=== PATIENT | female | born 1990 | race Two or more races ===

== ENCOUNTER 2025-02-05 22:40 | Emergency (ER) | payer OTHER ==
[~2025-02-05] VITALS: Ht 165.1 cm; Wt 70.3 kg
[2025-02-05 23:34] VITALS: BP 121/83; PULSE 78; RESP 18; TEMP 98.1; O2SAT 96
[2025-02-05] MEDS: LIDOCAINE VISCOUS 2% 15ML UD PO ONE (23:45)
[2025-02-05] MEDS: ONDANSETRON ODT 4 MG TAB PO ONE (23:45)
[2025-02-05] MEDS: MAALOX PLUS or MAALOX 30 ML PO ONE (23:45)
[2025-02-05] MEDS: KETOROLAC TROMETH 30 MG/ML 1ML VIAL IM ONE (23:45)
[2025-02-06 00:01] LABS: Basophils # (auto) 0 10 ^3/uL (0-0.2); Basophils % (auto) 0.3 % (0.0-2.0); Eosinophils # (auto) 0 10 ^3/uL (0-0.8); Eosinophils % (auto) 0.2 % (0.0-7.0); Hematocrit 39.4 % (36.0-46.0); Hemoglobin 13.6 g/dL (12.2-16.2); Lymphocytes # (auto) 0.9 10 ^3/uL (0.4-5.4); Lymphocytes % (auto) 7.4 % (10.0-50.0); Mean Corpuscular Hgb Conc. 34.4 g/dL (32.0-36.0); Mean Corpuscular Volume 90.1 fL (80.0-100.0); Monocytes # (auto) 0.5 10 ^3/uL (0-1.3); Monocytes % (auto) 3.9 % (0.0-12.0); Neutrophils # (auto) 10.4 10 ^3/uL (1.6-8.6); Neutrophils % (auto) 88.2 % (37.0-80.0); Platelet Count (auto) 248 10^3/uL (140-450); Red Blood Cells 4.37 10^6/uL (4.0-5.20); White Blood Cell 11.8 10^3/uL (4.4-10.8)
[2025-02-06 00:20] LABS: Alanine Aminotransferase 24 U/L (7-40); Alkaline Phosphatase 58 U/L (46-116); Anion Gap 12 (5-15); Aspartate Aminotransferase 27 U/L (<34); BUN/Creatinine Ratio 15.8 (10.0-20.0); Bilirubin, Total 0.5 mg/dL (0.2-1.0); Blood Urea Nitrogen 12 mg/dL (9-23); Calcium 9.3 mg/dL (8.7-10.4); Carbon Dioxide 24 mmol/L (20-31); Chloride 107 mmol/L (98-107); Lipase 38 U/L (12-53); Potassium 3.8 mmol/L (3.5-5.1); Sodium 143 mmol/L (136-145); Total Protein 7.4 g/dL (5.7-8.2)
[2025-02-06 00:26] LABS: Albumin 4.8 g/dL (3.2-4.8); Glucose 109 mg/dL (74-106)
[2025-02-06] MEDS: ACETAMINOPHEN 500 MG TAB or CAP PO ONE (00:57)
--- NOTE | 2025-02-06 01:50 | ED.PDOC ---
History of Present Illness HPI Comments 34-year-old female, with no significant history, is brought in by ambulance for complaint of abdominal pain and, with the associated nausea and vomiting. Patient reports sudden onset of symptoms after waking up from her nap, this evening. She reports suspicion on eating possibly spoiled fish after eating raw tuna and drinking alcohol out a [employer] restaurant, earlier, today. No relief or improvement with medications, showers, or laying down. Denies having any bloody or bilious vomitus, diarrhea, constipation, urinary symptoms, fever, chills or further associated symptoms. Patient also states other individuals that ate the same food as her do not endorse on having similar symptoms as her. Chief Complaint: Nausea/Vomiting Time Seen by MD: 23:30 Reviewed Notes: Nurses Notes, Health Care Specialist Notes, Medications, Allergies Allergies: Uncoded Allergies: NKDA (Allergy, Unknown, 02/05/25) Home Meds Active Scripts Famotidine (Pepcid AC) 20 Mg Tab, 20 MG PO DAILY for 5 Days, #5 TAB Prov:IVY JULIAN MD 02/06/25 Acetaminophen (Acetaminophen Er) 650 Mg Tab, 650 MG PO TIDPRN PRN for 5 Days, #15 TAB Prov:IVY JULIAN MD 02/06/25 Ondansetron Odt 4MG Tab (ZOFRAN PO) 4 Mg Tb, 4 MG PO TIDPRN PRN for 3 Days, #9 TAB ODT TAB-DISSOLVE IN MOUTH, THEN SWALLOW Prov:IVY JULIAN MD 02/06/25 Information Source: Patient, Emergency Med Personnel Mode of Arrival: EMS Severity: Moderate Timing: Hours Duration: Since onset Prehospital treatment: 12 Lead EKG, Accucheck, Carnival Worker Review of Systems: REVIEW OF SYSTEMS: No fever, no chills, or fatigue HEENT: No sore throat, no earache, no congestion, no neck pain. Cardiac: No chest pain. No palpitations. Lungs: No shortness of breath, no cough. GI: Abdominal pain, nausea, and vomiting. no diarrhea, no constipation : No dysuria, frequency, or urgency. No hematuria. Musculoskeletal: No joint pain , no joint swelling, no extremity edema. Skin: No rash, no itching. Neuro: No headache, no dizziness, no weakness Vital Signs Vital Signs Date Time Temp Pulse Resp B/P (MAP) Pulse Ox O2 Delivery O2 Flow Rate FiO2 02/05/25 23:34 78 18 96 Room Air* 0 21 02/05/25 23:34 98.1 121/83 (96) 98.1 Physical Exam General: Awake, alert and oriented. No acute distress. Skin: Skin in warm, dry and intact. Appropriate color for ethnicity. HEENT: The head is normocephalic and atraumatic. Conjunctivae are clear without exudates or hemorrhage. Sclera is non-icteric. EOM are intact. No signs of nystagmus. Eyelids are normal in appearance without swelling or lesions. Oral mucosa is pink and moist Neck: The neck is supple with normal range of motion. No JVD. Cardiac: Heart rate and rhythm are normal. No murmurs, gallops, or rubs are auscultated. Respiratory: No signs of respiratory distress. Lung sounds are clear in all lobes bilaterally without rales, rhonchi, or wheezes. Abdominal: RUQ tenderness. Otherwise, remaining abdomen is soft, non-tender without distention, guarding or rigidity. Bowel sounds are present and normoactive in all four quadrants. Extremities: Upper and lower extremities are atraumatic in appearance without deformity or edema. Neurological: The patient is awake, alert and oriented to person, place, and time with normal speech. Speech is clear. There is no facial asymmetry. Psychiatric: Appropriate mood and affect. Good judgement and insight. Past Medical History PAST MEDICAL HISTORY: Denies Surgical History: Denies all surgeries DIRECTOR FINANCIAL PLANNING History: No Pertinent DIRECTOR FINANCIAL PLANNING History Social History Smoker: Non-Smoker Alcohol: Occasionally Drugs: Denies Drug Use Lives In: Home Was a procedure done? Was a procedure done?: No Differential Dx Considerations may include: Differential diagnoses considered include: Abdominal aortic aneurysm, CA, esop hageal rupture, intestinal obstruction, mesenteric ischemia, perforated viscus or solid organ rupture, pneumonia, abscess, appendicitis, biliary disease, diverticulitis, gastritis, gastroenteritis, hepatitis, hernia, inflammatory bowel disease, pancreatitis, peptic ulcer disease, urinary tract infection, ureteral colic, constipation, GERD, irritable syndrome, abdominal wall pain, n onspecific abdominal pain, herpes zoster, nephrolithiasis. X-Ray, Labs, Meds, VS Vital Signs Date Time Temp Pulse Resp B/P (MAP) Pulse Ox O2 Delivery O2 Flow Rate FiO2 02/05/25 23:34 78 18 96 Room Air* 0 21 02/05/25 23:34 98.1 18 121/83 (96) 96 98.1 02/05/25 22:55 97.6 72 16 112/73 (86) 98 97.6 Lab Test 02/05/25 23:42 Range/Units White Blood Count 11.8 H 4.4-10.8 10^3/uL Red Blood Count 4.37 4.0-5.20 10^6/uL Hemoglobin 13.6 12.2-16.2 g/dL Hematocrit 39.4 36.0-46.0 % Mean Corpuscular Volume 90.1 80.0-100.0 fL Mean Corpuscular Hemoglobin 31.0 28.0-32.0 pg Mean Corpuscular Hemoglobin Concent 34.4 32.0-36.0 g/dL Red Cell Distribution Width 13.0 11.8-14.3 % Platelet Count 248 140-450 10^3/uL Mean Platelet Volume 9.0 6.9-10.8 fL Neutrophils (%) (Auto) 88.2 H 37.0-80.0 % Lymphocytes (%) (Auto) 7.4 L 10.0-50.0 % Monocytes (%) (Auto) 3.9 0.0-12.0 % Eosinophils (%) (Auto) 0.2 0.0-7.0 % Basophils (%) (Auto) 0.3 0.0-2.0 % Neutrophils # (Auto) 10.4 H 1.6-8.6 10 ^3/uL Lymphocytes # (Auto) 0.9 0.4-5.4 10 ^3/uL Monocytes # (Auto) 0.5 0-1.3 10 ^3/uL Eosinophils # (Auto) 0 0-0.8 10 ^3/uL Basophils # (Auto) 0 0-0.2 10 ^3/uL Nucleated Red Blood Cells 0.0 % Sodium Level 143 136-145 mmol/L Potassium Level 3.8 3.5-5.1 mmol/L Chloride Level 107 98-107 mmol/L Carbon Dioxide Level 24 20-31 mmol/L Anion Gap 12 5-15 Blood Urea Nitrogen 12 9-23 mg/dL Creatinine 0.76 0.550-1.02 mg/dL Glomerular Filtration Rate Calc 105 >90 mL/min BUN/Creatinine Ratio 15.8 10.0-20.0 Serum Glucose 109 H 74-106 mg/dL Lactic Acid Level 1.6 0.4-2.0 mmol/L Calcium Level 9.3 8.7-10.4 mg/dL Total Bilirubin 0.5 0.2-1.0 mg/dL Aspartate Amino Transferase (AST) 27 <34 U/L Alanine Aminotransferase (ALT) 24 7-40 U/L Alkaline Phosphatase 58 46-116 U/L Total Protein 7.4 5.7-8.2 g/dL Albumin 4.8 3.2-4.8 g/dL Lipase 38 12-53 U/L Current Medications Medications (Trade) Dose Ordered Sig/Malena Route Start Time Stop Time Status Last Admin Al Hydrox/Mg Hydrox/Simethicone (Maalox Plus) 30 ml ONCE ONCE PO 02/05/25 23:45 02/05/25 23:46 DC 02/05/25 23:45 Lidocaine HCl (Xylocaine 2% Viscous) 10 ml ONCE ONCE PO 02/05/25 23:45 02/05/25 23:46 DC 02/05/25 23:45 Ondansetron HCl (Zofran Po) 4 mg ONCE ONCE PO 02/05/25 23:45 02/05/25 23:46 DC 02/05/25 23:45 Ketorolac Tromethamine (Toradol Injection) 30 mg ONCE ONCE IM 02/05/25 23:45 02/05/25 23:46 DC 02/05/25 23:45 Acetaminophen (Tylenol Tablet Or Capsule) 500 mg ONCE ONCE PO 02/06/25 01:00 02/06/25 01:01 DC 02/06/25 00:57 Time of 1ST Reevaluation: 00:00 Reevaluation 1ST: Unchanged Patient Education/Counseling: Treatment, Need For Follow Up Family Education/Counseling: No Family Present SEPSIS Sepsis Screen Date sepsis recognized/suspect: Feb 05, 2025 Time Sepsis recognized/suspect: 2341 Recent Procedure: No On Antibiotic Therapy: No Respiratory Rate >20: No Heart Rate >90: No Temp<36 C (96.8 F) or >38.3 C: No SBP <90 or MAP <65 mmHG: No New Acute Mental Status Change: No Is the patient on CPAP, BIPAP,: No Physician Orders Test, Urine (02/05/25 23:36) Urinalysis (02/05/25 23:36) Po Trial (02/05/25 ) Vital Signs Date Time Temp Pulse Resp B/P (MAP) Pulse Ox O2 Delivery O2 Flow Rate FiO2 02/05/25 23:34 78 18 96 Room Air* 0 21 02/05/25 23:34 98.1 18 121/83 (96) 96 98.1 02/05/25 22:55 97.6 72 16 112/73 (86) 98 97.6 Laboratory Tests Test 02/05/25 23:42 Lactic Acid Level 1.6 mmol/L (0.4-2.0) White Blood Count 11.8 10^3/uL (4.4-10.8) H Medications Medications Dose Ordered Sig/Malena Route Start Time Stop Time Status Last Admin Dose Admin Acetaminophen 500 mg ONCE ONCE PO 02/06/25 01:00 02/06/25 01:01 DC 02/06/25 00:57 Al Hydrox/Mg Hydrox/Simethicone 30 ml ONCE ONCE PO 02/05/25 23:45 02/05/25 23:46 DC 02/05/25 23:45 Ketorolac Tromethamine 30 mg ONCE ONCE IM 02/05/25 23:45 02/05/25 23:46 DC 02/05/25 23:45 Lidocaine HCl 10 ml ONCE ONCE PO 02/05/25 23:45 02/05/25 23:46 DC 02/05/25 23:45 Ondansetron HCl 4 mg ONCE ONCE PO 02/05/25 23:45 02/05/25 23:46 DC 02/05/25 23:45 Departure 1 Departure Time of Disposition: 02:10 Impression: Primary Impression: Nausea & vomiting Additional Impression: Abdominal pain Disposition: 01 HOME / SELF CARE / HOMELESS Condition: Stable Additional Instructions: ED DISCHARGE INSTRUCTIONS Instructions: Please read all instructions provided in this packet carefully. Although you have been discharged from the Emergency Department, this does not mean that you have a "clean bill of health". No definitive diagnosis for your symptoms has been made today. It is possible that you are in the process of developing a serious illness. This is why you must return to the ED without fail if any new or worsening symptoms (especially if your symptoms include chest pain, trouble breathing, abdominal pain, fever, headache, confusion, trouble seeing, or trouble walking) It is also very important that you see a primary care doctor within the next 1-3 days to follow up. If you are unable to get an appointment, return to the ED for re-evaluation. Abdominal Pain: Care Instructions Overview Abdominal pain has many possible causes. Some aren't serious and get better on their own in a few days. Others need more testing and treatment. If your pain continues or gets worse, you need to be rechecked and may need more tests to find out what is wrong. You may need surgery to correct the problem. Don't ignore new symptoms, such as fever, nausea and vomiting, urination problems, pain that gets worse, and dizziness. These may be signs of a more serious problem. If you are not getting better, you may need more tests or treatment. The doctor has checked you carefully, but problems can develop later. If you notice any problems or new symptoms, get medical treatment right away. Follow-up care is a darnell part of your treatment and safety. Be sure to make and go to all appointments, and call your doctor if you are having problems. It's also a good idea to know your test results and keep a list of the medicines you take. How can you care for yourself at home? Rest until you feel better. To prevent dehydration, drink plenty of fluids. Choose water and other clear liquids until you feel better. If you have kidney, heart, or liver disease and have to limit fluids, talk with your doctor before you increase the amount of fluids you drink. When you feel like eating, start with small amounts. Do not have alcohol, caffeine, or spicy, hot, or high-fat foods for a day or two. Avoid anti-inflammatory medicines such as aspirin, ibuprofen (Advil, Motrin), and naproxen (Aleve). These can cause stomach upset. Talk to your doctor if you take daily aspirin for another health problem. When should you call for help? Call 911 anytime you think you may need emergency care. For example, call if: You passed out (lost consciousness). You pass maroon or very bloody stools. You vomit blood or what looks like coffee grounds. You have severe belly pain. Call your doctor now or seek immediate medical care if: Your pain gets worse, especially if it becomes focused in one area of your belly. You have a new or higher fever. Your stools are black and look like tar, or they have streaks of blood. You have unexpected vaginal bleeding. You have symptoms of a urinary tract infection. These may include: Pain when you urinate. Urinating more often than usual. Blood in your urine. You are dizzy or lightheaded, or you feel like you may faint. Watch closely for changes in your health, and be sure to contact your doctor if: You are not getting better as expected. Credits for Abdominal Pain: Care Instructions Current as of: June 04, 2023 Author: [employer] Staff Clinical Review Board All [employer] education is reviewed by a team that includes physicians, nurses, advanced practitioners, registered dieticians, and other healthcare professionals. e-Prescriptions Famotidine (Pepcid AC) 20 Mg Tab 20 MG PO DAILY for 5 Days, #5 TAB Prov: IVY JULIAN MD 02/06/25 Acetaminophen (Acetaminophen Er) 650 Mg Tab 650 MG PO TIDPRN PRN for 5 Days, #15 TAB Prov: IVY JULIAN MD 02/06/25 Ondansetron Odt 4MG Tab (ZOFRAN PO) 4 Mg Tb 4 MG PO TIDPRN PRN for 3 Days, #9 TAB ODT TAB-DISSOLVE IN MOUTH, THEN SWALLOW Prov: IVY JULIAN MD 02/06/25 Discharged With: Self Comments 34 F with N/V, abdominal pain. Patient is well-appearing, nontoxic. Patient's symptoms improved during the ED observation. Vital signs stable. Lab results reviewed and are not urgently actionable. Patient is felt stable for discharge home. Patient advised to follow up with primary care provider promptly and return to the emergency department with any new, worsening or concerning symptoms. Extensive evaluation was performed in attempt to identify or rule out: (See differential diagnosis section) The following tests were ordered, and results were reviewed by me and discussed with patient: (See diagnostic results section) The following test were independently interpreted by me: N/A I reviewed and agreed with the following test results read by other providers: N/A I reviewed the following notes from the pt's past medical encounters: N/A Additional information was gathered from interviewing the following independent historians: EMS Decision regarding hospitalization or escalation of hospital level of care: Risks and benefits of admission for further treatment of patient's condition was considered however due to patient's stable condition patient will be discharged to follow up closely or return to care for worsening of condition or inability to follow up. Critical Care Note Critical Care Time?: No Stability Stability form required: No Heart Score Heart Score: Heart Score Response (Comments) Value History N/A 0 EKG N/A 0 Age N/A 0 Risk Factors N/A 0 Troponin N/A 0 Total 0 I personally scribed for IVY JULIAN MD ([email or web address]) on 02/06/25 at 01:50. Electronically submitted by Bebo Magaña ([email or web address]). IVY JULIAN MD Feb 06, 2025 01:50
[2025-02-06] MEDS ORDERED: FAMO-161 PO (02:12)
[2025-02-06] MEDS ORDERED: ACET650T12 PO (02:12)
[2025-02-06] MEDS ORDERED: ZOFR4T PO (02:12)
== END 2025-02-06 03:25 | disposition home or self-care (01) ==
LOC: ER 22:40 → EDBD 22:40 → ER 02-06 03:25
DX: R11.2 Nausea with vomiting, unspecified (principal); R10.11 Right upper quadrant pain; F10.90 Alcohol use, unspecified, uncomplicated; Z79.899 Other long term (current) drug therapy; Y90.9 Presence of alcohol in blood, level not specified
CPT/HCPCS: 36415; 80053; 83605; 83690; 85025; 96372; 99284; J1885; Q0162

== ENCOUNTER 2025-06-14 21:41 | Emergency (ER) | payer OTHER ==
[~2025-06-14] VITALS: Ht 165.1 cm; Wt 66.3 kg
[~2025-06-14 21:41] MED LIST: ACET650T12 PO; FAMO-161 PO; ZOFR4T PO
[2025-06-14] MEDS: LORazepam 2MG/ML-1ML VIAL IM ONE (23:00)
[2025-06-14 23:08] VITALS: PULSE 85; RESP 20; O2SAT 100
[2025-06-14 23:29] LABS: Hematocrit 41.7 % (36.0-46.0); Hemoglobin 13.8 g/dL (12.2-16.2); Mean Corpuscular Hemoglobin 30.4 pg (28.0-32.0); Mean Corpuscular Volume 92.1 fL (80.0-100.0); Nucleated Red Blood Cells % 0.1 %
[2025-06-14 23:37] LABS: Chloride 106 mmol/L (98-107); Sodium 140 mmol/L (136-145)
[2025-06-14 23:38] LABS: Anion Gap 11 (5-15); Calcium 9.6 mg/dL (8.7-10.4); Carbon Dioxide 23 mmol/L (20-31)
[2025-06-14 23:41] LABS: Potassium 3.5 mmol/L (3.5-5.1)
[2025-06-14 23:43] LABS: BUN/Creatinine Ratio 9.3 (10.0-20.0)
[2025-06-14] MEDS: KETOROLAC TROMETH 60MG/2ML VIAL IM ONE (23:45)
[2025-06-14 23:46] LABS: Blood Urea Nitrogen 7 mg/dL (9-23); Glucose 106 mg/dL (74-106)
[2025-06-15 00:21] LABS: Cannabinoid Screen, Urine Pos (NEGATIVE)
[2025-06-15 00:25] LABS: Urine Amorphous Crystal FEW /hpf (None Seen); Urine Protein, UAD TRACE (Negative)
[2025-06-15 00:39] LABS: Amphetamine Screen, Urine Neg (NEGATIVE); Barbiturate Scree,Urine Neg (NEGATIVE); Benzodiazephine Screen, Urine Neg (NEGATIVE); Cocaine Screen, Urine Neg (NEGATIVE); Opiate Scree,Urine Neg (NEGATIVE); Phencyclidine Screen, Urine Neg (NEGATIVE)
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
--- NOTE | 2025-06-15 02:58 | ED.PDOC ---
Psychiatric HPI Comments 34-year-old female complaining of anxiety attack, patient states she [facility] [place] [facility] and says she has been having racing thoughts anxiety since then. He says her lower did not show so she began to panic. Patient reports a history of increasing anxiety. Due to her core case. He has never taken any medications for. States that thoughts became so overwhelming she started to hyperventilate and it could not breathe. Says she feels racing thoughts and numbness and tingling in her upper extremities. Patient denies any drug use. States she tried to go to the crisis Center was directed to the emergency department in by the crisis Center. Patient states that on the way to the emergency department she states she was having thoughts of suicide, but does not have a distinct plan just wishes she was not here anymore. Chief Complaint: Anxiety Time Seen by MD: 22:28 Reviewed Notes: Nurses Notes Information Source: Patient Mode of Arrival: Ambulatory Past Medical History PAST MEDICAL HISTORY: Denies Surgical History: Denies all surgeries BRIDAL SALES CONSULTANT History: No Pertinent BRIDAL SALES CONSULTANT History Social History Smoker: Non-Smoker Alcohol: Occasionally Drugs: Denies Drug Use Lives In: Home Constitutional: denies: chills, diaphoresis, fatigue, fever, malaise, sweats, weakness, others EENTM: denies: blurred vision, double vision, ear bleeding, ear discharge, ear drainage, ear pain, ear ringing, eye pain, eye redness, hearing loss, mouth pain, mouth swelling, nasal discharge, nose bleeding, nose congestion, nose pain, photophobia, tearing, throat pain, throat swelling, voice changes, others Respiratory: denies: cough, hemoptysis, orthopnea, SOB at rest, shortness of breath, SOB with excertion, stridor, wheezing, others Cardiovascular: denies: chest pain, dizzy spells, diaphoresis, Dyspnea on exertion, edema, irregular heart beat, left arm pain, lightheadedness, palpitations, PND, syncope, others Gastrointestinal: denies: abdomen distended, abdominal pain, blood streaked bowels, constipated, diarrhea, dysphagia, difficulty swallowing, hematemesis, melena, nausea, poor appetite, poor fluid intake, rectal bleeding, rectal pain, vomiting, others Genitourinary: denies: abnormal vagina bleeding, burning, dyspareunia, dysuria, flank pain, frequency, hematuria, incontinence, pain, , vagina discharge, urgency, others Neurological: denies: dizziness, fainting, headache, left sided numbness, left sided weakness, numbness, paresthesia, pre-existing deficit, right sided numbness, right sided weakness, seizure, speech problems, tingling, tremors, weakness, others Musculoskeletal: denies: back pain, gout, joint pain, joint swelling, muscle pain, muscle stiffness, neck pain, others Integumetry: denies: bruises, change in color, change in hair/nails, dryness, laceration, lesions, lumps, rash, wounds, others Psychiatric: reports: anxiety, depression Physical Exam General Appearance: No Apparent Distress, Normal HEENT: Normal ENT Inspection, Pharynx Normal, TMs Normal Neck: Full Range of Motion, Non-Tender, Normal, Normal Inspection Respiratory: Chest Non-Tender, Lungs Clear, No Accessory Muscle Use, No Respi ratory Distress, Normal Breath Sounds Cardiovascular: No Edema, No JVD, No Murmur, No Gallop, Normal Peripheral Pulses, Regular Rate/Rhythm Breast Exam: Deferred Gastrointestinal: No Organomegaly, Non Tender, No Pulsatile Mass, Normal Bowel Sounds, Soft Genitalia: Deferred Pelvic: Deferred Rectal: Deferred Extremities: No calf tenderness, Normal capillary refill, Normal inspection, Normal range of motion, Non-tender, No pedal edema Musculoskeletal : Apperance: Normal Neurologic: Alert, commercial project manager II-XII nml as Tested, No Motor Deficits, Normal Affect, Normal Mood, No Sensory Deficits Cerebellar Function: Normal Reflexes: Normal Skin: Dry, Normal Color, Warm Lymphatic: No Adenopathy Was a procedure done? Was a procedure done?: No Psych Differential Dx Psych. Differential Dx: Anxiety, Bipolar Disorder, Depression OD Differential Dx: Alcohol Abuse, Personality Disorder X-Ray, Labs, Meds, VS Vital Signs Date Time Temp Pulse Resp B/P (MAP) Pulse Ox O2 Delivery O2 Flow Rate FiO2 06/14/25 23:08 85 20 100 Room Air* 0 21 06/14/25 23:08 98.1 85 20 120/87 (98) 100 98.1 06/14/25 21:45 97.9 94 25 118/69 95 97.9 Lab Test 06/14/25 23:51 06/14/25 23:18 Range/Units Urine Color Dark-brown Yellow Urine Clarity Ex.turbid Clear Urine pH 5.5 5.0-9.0 Urine Specific [place] 1.027 1.001-1.035 Urine Protein Trace H Negative Urine Ketones Trace Negative Urine Blood Negative Negative /uL Urine Nitrite Negative Negative Urine Bilirubin Negative Negative Urine Urobilinogen Normal Negative mg/dL Urine Leukocyte Esterase Negative Negative /uL Urine RBC None seen 0 - 4 /hpf Urine Microscopic WBC < 1 0-5 /HPF Urine Squamous Epithelial Cells Few <5 /hpf Urine Amorphous Crystals Few None Seen /hpf Urine Bacteria Few H None Seen /hpf Urine Mucus Few None Seen Urine Glucose Normal Normal mg/dL Urine Opiates Screen Neg NEGATIVE Urine Fentanyl Screen Neg NEGATIVE Urine Barbiturates Screen Neg NEGATIVE Urine Phencyclidine Screen Neg NEGATIVE Urine Amphetamines Screen Neg NEGATIVE Urine Benzodiazepines Screen Neg NEGATIVE Urine Cocaine Screen Neg NEGATIVE Urine Cannabinoids Screen Pos NEGATIVE White Blood Count 10.9 H 4.4-10.8 10^3/uL Red Blood Count 4.53 4.0-5.20 10^6/uL Hemoglobin 13.8 12.2-16.2 g/dL Hematocrit 41.7 36.0-46.0 % Mean Corpuscular Volume 92.1 80.0-100.0 fL Mean Corpuscular Hemoglobin 30.4 28.0-32.0 pg Mean Corpuscular Hemoglobin Concent 33.0 32.0-36.0 g/dL Red Cell Distribution Width 13.0 11.8-14.3 % Platelet Count 283 140-450 10^3/uL Mean Platelet Volume 9.1 6.9-10.8 fL Neutrophils (%) (Auto) 78.0 37.0-80.0 % Lymphocytes (%) (Auto) 13.7 10.0-50.0 % Monocytes (%) (Auto) 7.5 0.0-12.0 % Eosinophils (%) (Auto) 0.4 0.0-7.0 % Basophils (%) (Auto) 0.4 0.0-2.0 % Neutrophils # (Auto) 8.5 1.6-8.6 10 ^3/uL Lymphocytes # (Auto) 1.5 0.4-5.4 10 ^3/uL Monocytes # (Auto) 0.8 0-1.3 10 ^3/uL Eosinophils # (Auto) 0 0-0.8 10 ^3/uL Basophils # (Auto) 0 0-0.2 10 ^3/uL Nucleated Red Blood Cells 0.1 % Sodium Level 140 136-145 mmol/L Potassium Level 3.5 3.5-5.1 mmol/L Chloride Level 106 98-107 mmol/L Carbon Dioxide Level 23 20-31 mmol/L Anion Gap 11 5-15 Blood Urea Nitrogen 7 L 9-23 mg/dL Creatinine 0.75 0.550-1.02 mg/dL Glomerular Filtration Rate Calc 106 >90 mL/min BUN/Creatinine Ratio 9.3 L 10.0-20.0 Serum Glucose 106 74-106 mg/dL Calcium Level 9.6 8.7-10.4 mg/dL Current Medications Medications (Trade) Dose Ordered Sig/Malena Route Start Time Stop Time Status Last Admin Lorazepam (Ativan Inj) 1 mg ONCE ONCE IM 06/14/25 23:00 06/14/25 23:01 DC 06/14/25 23:00 Ketorolac Tromethamine (Toradol Injection) 30 mg ONCE ONCE IM 06/14/25 23:45 06/14/25 23:46 DC 06/14/25 23:45 X-Ray, Labs, Meds, VS Comment Patient medically cleared, pending psychiatric consult Will report given to Dr. Flor Time of 1ST Reevaluation: 02:57 Reevaluation 1ST: Unchanged Patient Education/Counseling: Diagnosis, Treatment Family Education/Counseling: Diagnosis, Treatment Departure 1 Departure Time of Disposition: 02:56 Impression: Primary Impression: Panic attack Additional Impression: Suicidal ideation Disposition: 30 STILL A PATIENT Condition: Stable Discharged With: Self Critical Care Note Critical Care Time?: No Stability Stability form required: No Heart Score Heart Score: Heart Score Response (Comments) Value History N/A 0 EKG N/A 0 Age N/A 0 Risk Factors N/A 0 Troponin N/A 0 Total 0 LAURIE ARIZA Jun 15, 2025 02:57
[2025-06-15] MEDS ORDERED: LORA-655 PO (04:54)
[2025-06-15 05:30] VITALS: BP 116/76; PULSE 68; RESP 16; TEMP 97.9; O2SAT 98
== END 2025-06-15 05:48 | disposition home or self-care (01) ==
LOC: ER 21:41
DX: F41.0 Panic disorder [episodic paroxysmal anxiety] (principal); R45.851 Suicidal ideations; Z79.899 Other long term (current) drug therapy
CPT/HCPCS: 36415; 80048; 80307; 81001; 85025; 96372; 99284; J1885; J2060